=== PATIENT | male | born 1965 | race Caucasian/White ===

== ENCOUNTER 2018-07-06 08:21 | Emergency (ER) | payer OTHER ==
[2018-07-06 08:38] VITALS: BP 149/98
--- NOTE | 2018-07-06 09:04 | UC ---
Head Injury HPI - HPI Summary HPI Summary: 52-year-old male comes to clinic today due to a head injury. Patient was at work this morning and he was pulling on something when it gave way and he fell back striking his back and his head. He did receive an abrasion or contusion on the back of his head and does have some bleeding. He is not on blood thinners. No loss of consciousness. He does not feel confused and there is no problems with vision or speech or weakness or numbness. The headache from the injury is mild. Denies any neck pain. At this time his low back does not hurt and is not concerned with his low back. No other injuries mentioned. Patient reports he is up-to-date on his tetanus. - History Of Current Complaint Chief Complaint: UCHeadInjury Stated Complaint: HEAD INJURY Time Seen by Provider: 07/06/18 08:52 Pain Intensity: 1 - Allergies/Home Medications Allergies/Adverse Reactions: Allergies Allergy/AdvReac Type Severity Reaction Status Date / Time No Known Allergies Allergy Verified 07/06/18 08:29 Home Medications: Home Medications Lisinopril TAB* [Prinivil TAB*] 10 mg PO DAILY 07/06/18 [History Confirmed 07/06] glipiZIDE TAB* [Glucotrol TAB*] 10 mg PO DAILY 07/06/18 [History Confirmed 07/06] metFORMIN* [Glucophage 1000 MG TAB *] 1,000 mg PO BID 07/06/18 [History Confirmed 07/06/18] PMH/Surg Hx/FS Hx/Imm Hx Endocrine History: Diabetes Cardiovascular History: Hypertension - Surgical History Surgical History: Yes Surgery Procedure, Year, and Place: R cataract 2018 - Family History Known Family History: Positive: Cardiac Disease, Hypertension, Diabetes - Social History Alcohol Use: None Substance Use Type: None Smoking Status (MU): Never Smoked Tobacco Review of Systems Constitutional: Negative Skin: Other - Abrasion contusion with bleeding controlled on the occiput Eyes: Negative ENT: Negative Respiratory: Negative Cardiovascular: Negative Gastrointestinal: Negative Motor: Negative Musculoskeletal: Negative Neurological: Headache - Mild Psychological: Negative Is Patient Immunocompromised?: No All Other Systems Reviewed And Are Negative: Yes Physical Exam Triage Information Reviewed: Yes Appearance: Well-Appearing, No Pain Distress, Well-Nourished Vital Signs: Initial Vital Signs Temp 98.8 F 07/06/18 08:32 Pulse 111 07/06/18 08:32 Resp 20 07/06/18 08:32 BP 149/98 07/06/18 08:32 Pulse Ox 98 07/06/18 08:32 Vital Signs Reviewed: Yes Eye Exam: Normal Eyes: Positive: Conjunctiva Clear ENT Exam: Normal ENT: Positive: TMs normal. Negative: Nasal congestion, Nasal drainage Neck exam: Normal Neck: Positive: Supple, Nontender Respiratory Exam: Normal Respiratory: Positive: Lungs clear, Normal breath sounds, No respiratory distress Cardiovascular Exam: Normal Cardiovascular: Positive: RRR Musculoskeletal Exam: Normal Musculoskeletal: Positive: Strength Intact, ROM Intact Neurological Exam: Normal Neurological: Positive: Alert Psychological Exam: Normal Skin: Positive: Other - On the occiput there is a 2 cm diameter area of abrasion with some bright red blood that's not obviously bleeding at this time. Head Injury Course/Dx - Course Course Of Treatment: Order Information: CT BRAIN WO. Accession Number: [id number]. CPT: 37129. 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 COMPARISONS: None. TECHNIQUE: Multiple contiguous axial CT scans were obtained of the head without. intravenous contrast. FINDINGS: HEMORRHAGE/INFARCT: There is no hemorrhage or acute infarct. MASSES/SHIFT: There is no mass or shift. EXTRA- AXIAL SPACES: There are no extra-axial fluid collections. SULCI AND VENTRICLES : The sulci and ventricles are normal in size and position for the. patient's stated age. CEREBRUM: There are no focal parenchymal abnormalities. BRAINSTEM : There are no focal parenchymal abnormalities. CEREBELLUM: There are no focal parenchymal abnormalities. VESSELS: The vessels are grossly normal. PARANASAL SINUSES: The paranasal sinuses are clear. ORBITS: The orbits are unremarkable. BONES AND SOFT TISSUE: There is mild soft tissue swelling of the occipital scalp. OTHER: None. IMPRESSION: NO ACUTE INTRACRANIAL PATHOLOGY. . <Electronically signed by Kurt Goldberg MD in [facility]> 07/06/18 8620. I discussed the head CT report. He has no neurologic deficit here. The wound was cleaned by nursing and is no active bleeding. The plan will be able to return to work without limitations at this time. Recheck sooner if worse otherwise follow-up with primary care doctor. - Differential Dx/Diagnosis Provider Diagnoses: HEAD INJURY. ABRASION Discharge - Sign-Out/Discharge Documenting (check all that apply): Patient Departure All imaging exams completed and their final reports reviewed: Yes - Discharge Plan Condition: Stable Disposition: HOME Patient Education Materials: Head Injury (ED), Abrasion (ED) Forms: *Work Release Referrals: [facility] [place] [facility]IAN REFERRAL [Outside] Additional Instructions: FOLLOW UP WITH YOUR DOCTOR. GET RECHECKED FOR ANY WORSENING OF YOUR CONDITION OR QUESTIONS OR CONCERNS. - Billing Disposition and Condition Condition: STABLE Disposition: Home
--- NOTE | 2018-07-06 09:28 | RAD ---
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 FINDINGS: HEMORRHAGE/INFARCT: There is no hemorrhage or acute infarct. MASSES/SHIFT: There is no mass or shift. EXTRA-AXIAL SPACES: There are no extra-axial fluid collections. SULCI AND VENTRICLES: The sulci and ventricles are normal in size and position for the patient's stated age. CEREBRUM: There are no focal parenchymal abnormalities. BRAINSTEM: There are no focal parenchymal abnormalities. CEREBELLUM: There are no focal parenchymal abnormalities. VESSELS: The vessels are grossly normal. PARANASAL SINUSES: The paranasal sinuses are clear. ORBITS: The orbits are unremarkable. BONES AND SOFT TISSUE: There is mild soft tissue swelling of the occipital scalp. OTHER: None IMPRESSION: NO ACUTE INTRACRANIAL PATHOLOGY.
== END 2018-07-06 09:50 | disposition home or self-care (01) ==
LOC: UCEAST 08:21
DX: S09.90XA Unspecified injury of head, initial encounter (principal); S00.01XA Abrasion of scalp, initial encounter; W18.39XA Other fall on same level, initial encounter; Y93.89 Activity, other specified; Y92.9 Unspecified place or not applicable; Y99.0 Civilian activity done for income or pay; E11.9 Type 2 diabetes mellitus without complications; Z79.84 Long term (current) use of oral hypoglycemic drugs; I10 Essential (primary) hypertension
CPT/HCPCS: 70450; 99201; G0463